=== PATIENT | male | born 1975 | race Caucasian/White ===

== ENCOUNTER 2016-10-29 19:15 | Emergency (ER) | payer MEDICAID, OTHER ==
[~2016-10-29] VITALS: Ht 180.3 cm; Wt 108.9 kg
[~2016-10-29 19:15] MED LIST: ACET120S27 PO; IBU100LQ PO; NAPR220C PO
[2016-10-29 19:26] VITALS: BP 117/84
[2016-10-29] MEDS ORDERED: IBUPROFEN 600 MG TAB PO ONE (20:30)
[2016-10-29] MEDS ORDERED: cefTRIAXone SOD 1,000 MG VL IM ONE (21:30)
== END 2016-10-29 22:25 | disposition home or self-care (01) ==
LOC: ER 19:18
DX: S62.661B Nondisplaced fracture of distal phalanx of left index finger, initial encounter for open fracture (principal); F17.210 Nicotine dependence, cigarettes, uncomplicated; S61.301A Unspecified open wound of left index finger with damage to nail, initial encounter; X78.8XXA Intentional self-harm by other sharp object, initial encounter; Y93.89 Activity, other specified; Y92.89 Other specified places as the place of occurrence of the external cause; Y99.8 Other external cause status
CPT/HCPCS: 12001; 73140; 96372; 99284; J0696

== ENCOUNTER 2018-02-13 09:41 | Emergency (ER) | payer MEDICAID, OTHER ==
[~2018-02-13] VITALS: Ht 182.9 cm; Wt 99.8 kg
[~2018-02-13 09:41] MED LIST changes: -IBU100LQ PO; +IBUP100S11 PO
[2018-02-13 10:24] LABS: Eosinophils # (auto) 0.1 uL; Lymphocytes # (auto) 1.4 uL; Nucleated Red Blood Cells % 0.2 %; White Blood Cell 8.5 10^3/uL (4.4-10.8)
[2018-02-13 10:26] LABS: Basophils # (auto) 0 uL; Basophils % (auto) 0.3 % (0.0-2.0); Eosinophils % (auto) 1.2 % (0.0-7.0); Hematocrit 53.4 % (41.0-53.0); Hemoglobin 18.5 g/dL (13.5-17.5); Lymphocytes % (auto) 16.7 % (10.0-50.0); Mean Corpuscular Hemoglobin 30.8 pg (28.0-32.0); Mean Corpuscular Hgb Conc. 34.5 g/dL (32.0-36.0); Monocytes # (auto) 0.6 uL; Monocytes % (auto) 6.7 % (0.0-12.0); Neutrophils # (auto) 6.4 uL; Neutrophils % (auto) 75.1 % (37.0-80.0); Platelet Count (auto) 257 10^3/uL (140-450)
[2018-02-13 10:36] LABS: Alanine Aminotransferase 36 U/L (16-61); Albumin 4.1 g/dL (3.4-5.0); Anion Gap 5 (5-15); Aspartate Aminotransferase 18 U/L (15-37); Blood Urea Nitrogen 19 mg/dL (7-18); Calcium 9.1 mg/dL (8.5-10.1); Carbon Dioxide 25 mmol/L (21-32); Chloride 109 mmol/L (98-107); GFR African American 112 mL/min; GFR Non-African American 93 mL/min; Glucose 106 mg/dL (74-106); Potassium 4.1 mmol/L (3.5-5.1); Sodium 139 mmol/L (136-145)
[2018-02-13 10:41] LABS: Alkaline Phosphatase 61 U/L (45-117); Bilirubin, Total 1.8 mg/dL (0.2-1.0); Total Protein 7.7 g/dL (6.4-8.2)
[2018-02-13] MEDS ORDERED: SODIUM CHLORIDE 0.9% 1,000 ML IV ONE (10:52)
[2018-02-13] MEDS ORDERED: ASPirin 81 mg TAB PO ONE (11:00)
[2018-02-13 12:20] LABS: Urine Bacteria NONE SEEN /hpf (None Seen); Urine Blood Negative /uL (Negative); Urine Mucus FEW (None Seen); Urine Specific Gravity 1.026 (1.001-1.035); Urine WBC <1 /hpf (0 - 3)
[2018-02-13 15:36] VITALS: BP 121/67
== END 2018-02-13 16:00 | disposition home or self-care (01) ==
LOC: ER 09:44
DX: R07.89 Other chest pain (principal); I25.2 Old myocardial infarction; F17.210 Nicotine dependence, cigarettes, uncomplicated; Z76.0 Encounter for issue of repeat prescription; Z90.49 Acquired absence of other specified parts of digestive tract; Z98.61 Coronary angioplasty status
CPT/HCPCS: 36415; 71046; 80053; 81001; 83735; 83880; 84443; 84484; 85025; 85379; 85610; 85730; 93005; 94761; 96360; 96361; 99284; J7030

== ENCOUNTER 2019-04-27 03:51 | Emergency (ER) | payer MEDICAID, OTHER ==
[~2019-04-27] VITALS: Ht 182.9 cm; Wt 106.6 kg
[2019-04-27] MEDS ORDERED: SODIUM CHLORIDE 0.9% 1,000 ML IV ONE (07:11)
[2019-04-27] MEDS ORDERED: KETOROLAC TROMETH 15 mg/ml 1ML VL IV ONE (07:15)
[2019-04-27] MEDS ORDERED: METOCLOPRAMIDE HCL 5MG/ml INJ 2ml VIAL IV ONE (07:15)
[2019-04-27 07:16] LABS: Basophils # (auto) 0 uL; Eosinophils # (auto) 0 uL; White Blood Cell 13.2 10^3/uL (4.4-10.8)
[2019-04-27 07:18] LABS: Basophils % (auto) 0.2 % (0.0-2.0); Eosinophils % (auto) 0.2 % (0.0-7.0); Hemoglobin 18.7 g/dL (13.5-17.5); Lymphocytes % (auto) 7.9 % (10.0-50.0); Mean Corpuscular Hemoglobin 31.1 pg (28.0-32.0); Mean Corpuscular Hgb Conc. 34.6 g/dL (32.0-36.0); Mean Corpuscular Volume 89.9 fL (80.0-100.0); Monocytes # (auto) 0.4 uL; Monocytes % (auto) 2.7 % (0.0-12.0); Neutrophils # (auto) 11.7 uL; Nucleated Red Blood Cells % 0.1 %; Platelet Count (auto) 274 10^3/uL (140-450); Red Blood Cells 6.01 10^6/uL (4.5-5.90); Red Cell Distribution Width 13.4 % (11.8-14.3)
[2019-04-27 07:22] LABS: Alanine Aminotransferase 37 U/L (16-61); Albumin 4.3 g/dL (3.4-5.0); Amylase 57 U/L (25-115); Anion Gap 7 (5-15); BUN/Creatinine Ratio 19.1; Blood Urea Nitrogen 18 mg/dL (7-18); Calcium 8.6 mg/dL (8.5-10.1); Carbon Dioxide 22 mmol/L (21-32); Chloride 109 mmol/L (98-107); GFR African American 113 mL/min; GFR Non-African American 93 mL/min; Glucose 129 mg/dL (74-106); Lipase 124 U/L (73-393); Potassium 4.2 mmol/L (3.5-5.1); Sodium 138 mmol/L (136-145)
[2019-04-27 07:32] LABS: Alkaline Phosphatase 58 U/L (45-117); Aspartate Aminotransferase 18 U/L (15-37); Bilirubin, Total 1.3 mg/dL (0.2-1.0)
[2019-04-27 08:31] LABS: Urine Amorphous Crystal FEW /hpf (None Seen); Urine Bacteria MANY /hpf (None Seen); Urine Budding Yeast MANY /hpf (None Seen); Urine Mucus FEW (None Seen); Urine WBC 328 /hpf (0 - 3)
[2019-04-27] MEDS ORDERED: TAMSULOSIN HYDROCHLORIDE 0.4 MG CAP PO ONE (08:45)
[2019-04-27 08:49] VITALS: BP 135/80
[2019-04-30] MEDS ORDERED: HYDR-4833 PO (12:32)
[2019-04-30] MEDS ORDERED: DICL50TA4 PO (12:34)
[2019-04-30] MEDS ORDERED: CIPR500T4 PO (12:35)
[2019-05-01] MEDS ORDERED: METO25TA5 PO (01:11)
[2019-05-01] MEDS ORDERED: ASPI-404 PO (01:11)
[2019-05-01] MEDS ORDERED: ATO40T PO (01:11)
== END 2019-04-27 10:37 | disposition home or self-care (01) ==
LOC: ER 03:51
DX: N13.30 Unspecified hydronephrosis (principal); N20.2 Calculus of kidney with calculus of ureter; R82.71 Bacteriuria; R31.9 Hematuria, unspecified; I10 Essential (primary) hypertension; F17.210 Nicotine dependence, cigarettes, uncomplicated; E78.5 Hyperlipidemia, unspecified; I25.2 Old myocardial infarction; Z90.49 Acquired absence of other specified parts of digestive tract; Z98.61 Coronary angioplasty status; Z79.899 Other long term (current) drug therapy
CPT/HCPCS: 36415; 71045; 74176; 80053; 80320; 81001; 82150; 83690; 84484; 85025; 93005; 96374; 96375; 99284; J1885; J2765; J7030

== ENCOUNTER 2019-05-07 18:14 | Emergency (ER) | payer MEDICAID ==
[~2019-05-07] VITALS: Ht 182.9 cm; Wt 102.1 kg
[~2019-05-07 18:14] MED LIST changes: -ACET120S27 PO; +ASPI-404 PO; +ATO40T PO; +HYDR-4833 PO; -IBUP100S11 PO; +METO25TA5 PO; -NAPR220C PO
[2019-05-07 19:26] LABS: Basophils # (auto) 0 uL; Basophils % (auto) 0.4 % (0.0-2.0); Eosinophils # (auto) 0.2 uL; Eosinophils % (auto) 1.5 % (0.0-7.0); Hematocrit 48.2 % (41.0-53.0); Hemoglobin 16.8 g/dL (13.5-17.5); Lymphocytes # (auto) 2.4 uL; Lymphocytes % (auto) 22.2 % (10.0-50.0); Mean Corpuscular Hemoglobin 31.1 pg (28.0-32.0); Mean Corpuscular Hgb Conc. 34.9 g/dL (32.0-36.0); Mean Corpuscular Volume 89.2 fL (80.0-100.0); Monocytes # (auto) 0.7 uL; Monocytes % (auto) 6.8 % (0.0-12.0); Neutrophils # (auto) 7.4 uL; Neutrophils % (auto) 69.1 % (37.0-80.0); Nucleated Red Blood Cells % 0.1 %; Platelet Count (auto) 313 10^3/uL (140-450); Red Blood Cells 5.41 10^6/uL (4.5-5.90); White Blood Cell 10.8 10^3/uL (4.4-10.8)
[2019-05-07 19:47] LABS: Calcium 8.9 mg/dL (8.5-10.1); Chloride 109 mmol/L (98-107); Potassium 3.8 mmol/L (3.5-5.1); Sodium 141 mmol/L (136-145)
[2019-05-07 19:55] LABS: Alanine Aminotransferase 39 U/L (16-61); Alkaline Phosphatase 57 U/L (45-117); Anion Gap 8 (5-15); Aspartate Aminotransferase 23 U/L (15-37); BUN/Creatinine Ratio 15.4; Bilirubin, Total 1.2 mg/dL (0.2-1.0); Blood Urea Nitrogen 14 mg/dL (7-18); Carbon Dioxide 24 mmol/L (21-32); GFR African American 117 mL/min; GFR Non-African American 97 mL/min; Glucose 86 mg/dL (74-106); Total Protein 7.5 g/dL (6.4-8.2)
[2019-05-07 20:02] LABS: INR 1.08 (0.9-1.15); Partial Thromboplastin Time 25.6 sec (23.64-32.05)
[2019-05-07 22:45] VITALS: BP 144/82
== END 2019-05-07 23:16 | disposition home or self-care (01) ==
LOC: ER 18:14 → EDUNIT# 18:14 → EDBD 18:14 → ER 23:16
DX: R07.89 Other chest pain (principal); F45.8 Other somatoform disorders; I10 Essential (primary) hypertension; I25.2 Old myocardial infarction; Z98.61 Coronary angioplasty status
CPT/HCPCS: 36415; 71046; 80053; 83880; 84484; 85025; 85379; 85610; 85730; 93005

== ENCOUNTER 2020-07-21 18:03 | Emergency (ER) | payer MEDICAID ==
[~2020-07-21] VITALS: Ht 182.9 cm; Wt 99.8 kg
[~2020-07-21 18:03] MED LIST changes: -ASPI-404 PO; +ASPI-543 PO
[2020-07-21 18:43] LABS: Urine Bacteria NONE SEEN /hpf (None Seen); Urine Blood Negative /uL (Negative); Urine Specific Gravity 1.022 (1.001-1.035); Urine WBC 1 /hpf (0 - 3)
[2020-07-21 19:46] LABS: Basophils # (auto) 0 10 ^3/uL (0-0.2); Eosinophils % (auto) 1.7 % (0.0-7.0); Hemoglobin 17.8 g/dL (13.5-17.5)
[2020-07-21 19:48] LABS: Basophils % (auto) 0.4 % (0.0-2.0); Eosinophils # (auto) 0.2 10 ^3/uL (0-0.8); Hematocrit 50.3 % (41.0-53.0); Lymphocytes # (auto) 2.5 10 ^3/uL (0.4-5.4); Mean Corpuscular Hemoglobin 31.5 pg (28.0-32.0); Mean Corpuscular Hgb Conc. 35.5 g/dL (32.0-36.0); Mean Corpuscular Volume 88.8 fL (80.0-100.0); Monocytes # (auto) 0.7 10 ^3/uL (0-1.3); Monocytes % (auto) 7.9 % (0.0-12.0); Neutrophils # (auto) 5.8 10 ^3/uL (1.6-8.6); Nucleated Red Blood Cells % 0.2 %; Platelet Count (auto) 274 10^3/uL (140-450); Red Blood Cells 5.66 10^6/uL (4.5-5.90); Red Cell Distribution Width 13.1 % (11.8-14.3); White Blood Cell 9.2 10^3/uL (4.4-10.8)
[2020-07-21 19:53] LABS: Anion Gap 6 (5-15); Blood Urea Nitrogen 14 mg/dL (7-18); Calcium 8.8 mg/dL (8.5-10.1); Carbon Dioxide 24 mmol/L (21-32); Chloride 110 mmol/L (98-107); Glucose 86 mg/dL (74-106); Potassium 3.6 mmol/L (3.5-5.1); Sodium 140 mmol/L (136-145)
[2020-07-21 19:58] LABS: Alanine Aminotransferase 38 U/L (16-61); Alkaline Phosphatase 58 U/L (45-117); Aspartate Aminotransferase 23 U/L (15-37); BUN/Creatinine Ratio 15.6; Bilirubin, Total 1.1 mg/dL (0.2-1.0); GFR African American 118 mL/min; GFR Non-African American 97 mL/min; Total Protein 7.6 g/dL (6.4-8.2)
[2020-07-21 20:36] LABS: Magnesium 2.5 mg/dL (1.6-2.6)
[2020-07-21 20:48] LABS: INR 0.99 (0.9-1.15)
[2020-07-21] MEDS ORDERED: ACETAMINOPHEN 500 MG TAB PO ONE (23:00)
[2020-07-21] MEDS ORDERED: KETOROLAC TROMETH 60MG/2ML VIAL IM ONE (23:00)
[2020-07-22 01:03] VITALS: BP 147/89
== END 2020-07-22 01:17 | disposition home or self-care (01) ==
LOC: ER 18:05
DX: M94.0 Chondrocostal junction syndrome [Tietze] (principal); I10 Essential (primary) hypertension; I25.2 Old myocardial infarction; Z86.73 Personal history of transient ischemic attack (TIA), and cerebral infarction without residual deficits; Z98.61 Coronary angioplasty status; Z88.6 Allergy status to analgesic agent
CPT/HCPCS: 36415; 71045; 80053; 81001; 83605; 83690; 83735; 84484; 85025; 85610; 93005; 96372; 99285; J1885